=== PATIENT | female | born 1980 | race Caucasian/White ===

== ENCOUNTER 2024-11-14 23:59 | Emergency (ER) | payer OTHER, SELFPAY ==
[2024-11-15] VITALS: BMI 65.0
[2024-11-15 00:48] VITALS: BP 190/113; BP 203/126; PULSE 73; RESP 20; TEMP 36.7; O2SAT 97
--- NOTE | 2024-11-15 01:01 | XR_ITS ---
Examination: CT brain head without contrast. 2-D sagittal coronal reconstructions Date and time of exam:November 15, 2024 0107 hrs. Indications: High blood pressure with headache nausea vomiting today CTDI: vol (mGy):53.9 DLP: (mGycm):1110 Technique: Multiple CT axial sections of the brain have been obtained, 5 mm slice thickness. Contrast has not been administered. 2-D sagittal, coronal reconstructions have been obtained Low dose protocols were performed. One or more of the following dose reduction techniques were used; automated exposure control, adjustment of the mA and/or KV according to patient size, use of iterative reconstruction technique. Findings: No significant ventricular enlargement. Intra-axial or extra-axial hemorrhage density is not seen. No mass effect or midline shift Basal cisterns are not remarkable. Fourth ventricle is midline. Cranial vault intact. Impression: Negative for acute hemorrhage, mass effect or midline shift
--- NOTE | 2024-11-15 01:03 | PD.EDHA ---
ED Headache RME/HPI General Chief Complaint: Headache Stated Complaint: GIANG, HIGH BLOOD PRESSURE Time Seen by Provider: 11/15/24 01:01 Arrival date/time: 11/14/24 23:59 44F with history of HTN (doesn't take meds often) presents to ED with several days of GIANG, N/V and high BP. Limitations: no limitations Related Data Allergies Allergy/AdvReac Type Severity Reaction Status Date / Time No Known Allergies Allergy Verified 11/15/24 00:02 Review of Systems Review of Systems Systems Reviewed: All systems reviewed, normal except as documented Constitutional Constitutional: Reports system reviewed and no additional complaints, except as documented, Reports as per HPI, Denies fever(s) and Reports headache(s) ENT Ears, Nose, Mouth, and Throat: Denies disequilibrium and Reports headache(s) Cardiovascular Cardiovascular: Reports system reviewed and no additional complaints, except as documented, Denies chest pain and Denies dyspnea Respiratory Respiratory: Reports system reviewed and no additional complaints, except as documented, Denies cough and Denies dyspnea Gastrointestinal Gastrointestinal: Reports system reviewed and no additional complaints, except as documented, Reports as per HPI, Denies abdominal pain, Reports nausea and Reports vomiting Neurologic Neurologic: Reports system reviewed and no additional complaints, except as documented, Denies confusion, Denies disequilibrium and Reports headache(s) Psychiatric Psychiatric: Denies confusion Past Medical History Social History SMOKING STATUS: Never smoker ED Exam General Limitations: Present no limitations General appearance: Present alert and in no apparent distress Head Head exam: Present atraumatic Eye Eye exam: Present normal appearance, PERRL and EOMI ENT ENT exam: Present normal exam, normal oropharynx and mucous membranes moist Neck Neck exam: Present normal inspection, full ROM and trachea midline Chest Chest inspection: Present normal inspection and symmetric chest wall rise Respiratory Respiratory exam: Present normal lung sounds bilaterally Cardiovascular Cardiovascular exam: Present regular rate, normal rhythm and normal heart sounds Abdominal Exam Abdominal exam: Present soft and normal bowel sounds Extremities Exam Extremities exam: Present normal inspection and full ROM Back Exam Back exam: Present normal inspection and full ROM Neurological Exam Neurological exam: Present alert, oriented X3 and CN II-XII intact Psychiatric Psychiatric exam: Present normal affect and normal mood Skin Skin exam: Present warm, dry, intact and normal color Course Quality Measures none Orders Category Date Time Status CT head/brain wo con Stat Exams 11/15/24 01:01 Taken Metoclopramide [Reglan] Med 11/15/24 01:01 Discontinued 10 mg PO X1 ONE hydrALAZINE HCL [Apresoline] Med 11/15/24 01:01 Discontinued 25 mg PO X1 ONE Vital Signs Vital signs: Vital Signs Temperature 98.0 F 11/15/24 00:48 Pulse Rate 73 11/15/24 00:48 Respiratory Rate 20 11/15/24 00:48 Blood Pressure 190/113 H 11/15/24 00:48 Pulse Oximetry (%) 97 11/15/24 00:48 Oxygen Delivery Method Room Air 11/15/24 00:48 O2 at 97% on RA and WNLs Headache MDM Narrative MDM Narrative:: 44F with history of HTN (doesn't take meds often) presents to ED with several days of GIANG, N/V and high BP. Physical exam reveals normal pupil response and EOM. ENT clear. No neck tenderness. ROM intact. No ab tenderness. Patietn is afebrile, calm, and alert. CT unremarkable. Meds improved symptoms and BP. Patient data External records reviewed:: None Clinical information provided by:: patient Social determinants that could affect healthcare access:: none Patient has the following chronic illnesses:: HTN How is presenting disease/condition affected by chronic disease/condition?: exacerbated by Evaluation data The following diagnostics were reviewed and interpreted by me:: radiology exam(s) Lab and/or radiology exams considered but not ordered:: ordered Interpretation Summary: above Medications / Prescriptions Medications or Prescriptions considered but not ordered:: ordered Medication administrations:: Medication Administration History Discontinued Medications Hydralazine HCl (Hydralazine Hcl 25 Mg Tablet) 25 mg PO X1 ONE Stop: 11/15/24 01:02 Last Admin: 11/15/24 01:17 Dose: 25 mg Documented By: ROHITH Metoclopramide HCl (Metoclopramide 5 Mg Tablet) 10 mg PO X1 ONE Stop: 11/15/24 01:02 Last Admin: 11/15/24 01:17 Dose: 10 mg Documented By: ROHITH above Consultations Consultation(s) initiated? (list below): No Diagnosis Differential diagnosis headache: migraine, tension headache, subarachnoid hemorrhage, headache, meningitis, sinusitis, postconcussion syndrome and other (hypertensive urgency) Most likely diagnosis given after review of the tests above:: hypertensive urgency Admission Indicated Admission indicated?: not indicated Admission Request Was there a request for admission?: No Disposition Plan Disposition Plan: Discharge Discharge Attestation Discharge Attestation: The patient and all family members were given an opportunity to ask questions and understood the discharge instructions. Discharge instructions specifically effects, indications for sooner follow up or return to the emergency department, and the expected course of current diagnosis. Patient condition: Stable Discharge Plan Plan Patient Disposition: HOME (Self Care) Disposition Comment: Stable Problem List Clinical Impression: Hypertensive urgency Patient/Caregiver Discharge Instructions Additional Instructions: Please follow-up with PCP within 24-48 hours and return immediately if symptoms worsen. Make sure to take daily HTN meds. Print Language: Kinyarwanda Stand Alone Forms: Patient Portal Info Letter TASNEEM/ELSI Supervising Physician TASNEEM/ELSI Supervising Physician: Dr. Samuel
[2024-11-15 01:17] VITALS: BP 190/113; PULSE 73
[2024-11-15] MEDS: hydrALAZINE HCL 25 MG TABLET PO (01:17)
[2024-11-15] MEDS: METOCLOPRAMIDE 5 MG TABLET 10 MG PO (01:17)
--- NOTE | 2024-11-15 01:52 | PRELIM_ITS ---
CT scan of the head without intravenous contrast (axial sections with sagittal and coronal reformats) . November 15, 2024 at 0107 hoursClinical History: Headache, nausea, vomiting, high blood pressure.Com parison: No prior study is available for comparison. Findings:No evidence of intracranial hemorrhage, mass effect or midline shift. The ventricles and CSF spaces are unremarkable. The calvarium is unrem arkable. The mastoid air cells and the visualized paranasal sinuses are clear.Impression:No evidence of intracranial hemorrhage, mass effect or midline shift. Report Electronically Signed By: Vaibhav carrillo 11/15/2024 1:51:45 AM [EST]
[2024-11-15 02:00] VITALS: BP 177/98; PULSE 80; RESP 20; TEMP 37.3; O2SAT 98
== END 2024-11-15 02:09 | disposition home or self-care (01) ==
LOC: SERX 11-15 02:33
PROVIDERS: Emergency Provider Emergency Medicine
DX: I16.0 Hypertensive urgency (principal); I10 Essential (primary) hypertension; R51.9 Headache, unspecified; R11.2 Nausea with vomiting, unspecified
CPT/HCPCS: 70450; 99284; A9270

== ENCOUNTER → 2024-12-04 | Outpatient (CLI) | payer OTHER, SELFPAY ==
--- NOTE | 2024-12-04 14:30 | XR_ITS ---
Examination: Screening digital mammography, bilateral Computer aided detection 3-D breast Tomosynthesis, bilateral Date and time of exam: December 04, 2024 1447 hours Compared to mammograms dating to December 22, 2021 Indication: Screening Technique: Nonmagnified MLO, CC views of the breasts to been obtained, reconstructed from 3-D Tomosynthesis images. R2 computer aided detection program utilized for evaluation of suspicious masses and/or abnormal calcifications. 3-D Tomosynthesis images obtained. Findings: Scattered areas of fibroglandular density Benign calcifications. No suspicious masses Impression: BI-RADS category II: Benign Findings. Recommend 1 year follow-up mammogram.
== END | disposition home or self-care (01) ==
LOC: CDIM 14:19
PROVIDERS: Referring Provider Nurse Practitioner; Visit Provider Nurse Practitioner
DX: Z12.31 Encounter for screening mammogram for malignant neoplasm of breast (principal); R92.323 Mammographic fibroglandular density, bilateral breasts; R92.1 Mammographic calcification found on diagnostic imaging of breast
CPT/HCPCS: 77063; 77067

== ENCOUNTER → 2025-01-30 | Outpatient (CLI) | payer OTHER, SELFPAY ==
--- NOTE | 2025-01-30 15:21 | XR_ITS ---
Examination: Foot, right, 3 views Technique: AP, oblique, lateral views foot, 3 views Date and time of exam: January 30, 2025 1551 hours INDICATIONS: Right foot pain beginning 2 weeks ago. FINDINGS: Mild narrowing first metatarsophalangeal joint Small plantar posterior bony calcaneal spurs Mild diffuse narrowing intertarsal joints No fracture IMPRESSION: Mild osteoarthritis
== END | disposition home or self-care (01) ==
PROVIDERS: PCP Family Medicine; Referring Provider Registered Nurse Community Health; Visit Provider Registered Nurse Community Health
DX: M19.071 Primary osteoarthritis, right ankle and foot (principal)
CPT/HCPCS: 73630

== ENCOUNTER 2025-03-12 11:50 | Day surgery (SDC) | payer OTHER, SELFPAY ==
--- NOTE | 2025-03-09 10:58 | EKG_ITS ---
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
[2025-03-09 11:48] LABS: HCG Qualitative,Urine Negative
[2025-03-09 12:00] LABS: Alanine Aminotransferase < 7 U/L (10-49); Albumin, Serum 4.2 gm/dL (3.5-5.0); Albumin/Globulin Ratio 1.6 (1.2-2.2); Alkaline Phosphatase 110 U/L (46-116); Anion Gap 5 (7-16); Aspartate Amino Transferase 10 U/L (0-34); BUN/Creatinine Ratio 11 Ratio (12-20); Bilirubin,Total 0.4 mg/dL (0.3-1.2); Blood Urea Nitrogen 8 mg/dL (9-23); Calcium 9.2 mg/dL (8.3-10.6); Calcium (Corrected) 9.2 mg/dL (8.5-10.1); Chloride 105 mMol/L (98-107); Creatinine (Component) 0.7 mg/dL (0.6-1.3); Globulin 2.7 gm/dL (2.3-3.5); Glucose 117 mg/dL (74-106); Osmolality,Calculated 278 (275-295); Potassium 3.9 mMol/L (3.4-5.1); Sodium 140 mMol/L (136-145); Total Protein 6.9 gm/dL (5.7-8.2); eGFR > 60 See Note
[2025-03-09 12:19] LABS: Partial Thromboplastin Time 27.7 Seconds (22.0-36.0); Prothrombin Time 10.8 Seconds (9.0-12.2)
[2025-03-09 15:22] VITALS: BMI 67.8
[2025-03-12 12:26] VITALS: BP 157/101; PULSE 74; RESP 23; TEMP 36.6; O2SAT 98; BMI 67.3
[2025-03-12] MEDS: RINGERS LACTATED 1000 ML 1,000 ML 20 ML IV (16:19)
[2025-03-12 16:43] VITALS: BP 130/90; PULSE 70; RESP 12; TEMP 36.3; O2SAT 100
[2025-03-12 16:48] VITALS: BP 133/77; PULSE 68; RESP 15; O2SAT 97
[2025-03-12 16:53] VITALS: BP 120/62; PULSE 64; RESP 12; O2SAT 96
[2025-03-12 16:58] VITALS: BP 138/77; PULSE 72; RESP 12; O2SAT 99
[2025-03-12 17:13] VITALS: BP 146/88; PULSE 68; RESP 14; TEMP 36.4; O2SAT 98
--- NOTE | 2025-03-12 17:30 | SUR.PHASEII ---
1643: pt arrived to PACU via gurney drowsy but arouses to voice, breathing unlabored, report from Radha CLEMENTE, James HERNANDEZ, and Dr Humphries 1700: pt tolerating oral fluids without difficulty swallowing or n/v 1730: pt awake, alert, able to follow commands, breathing unlabored, discharge instructions given with spouse present, all questions answered, pt able to dress self and ambulate to wheelchair with steady gait, pt discharged via wheelchair with all belongings and copies of discharge paperwork.
== END 2025-03-12 17:30 | disposition home or self-care (01) ==
PROVIDERS: PCP Family Medicine; Referring Provider Specialist; Visit Provider Specialist
PROC: 0DJD8ZZ Inspection of Lower Intestinal Tract, Via Natural or Artificial Opening Endoscopic (ICD-10-PCS; CPT 45378; principal; 2025-03-12 14:00)
DX: K52.9 Noninfective gastroenteritis and colitis, unspecified (principal); K63.89 Other specified diseases of intestine; K62.89 Other specified diseases of anus and rectum; K64.9 Unspecified hemorrhoids; Z01.810 Encounter for preprocedural cardiovascular examination
CPT/HCPCS: 45380; 36415; 80053; 81025; 85610; 85730; 93005; A4649; J7120

== ENCOUNTER 2025-03-16 05:30 | Emergency (ER) | payer OTHER, SELFPAY ==
[2025-03-16 05:32] VITALS: BMI 67.3
[2025-03-16 05:39] VITALS: BP 135/83; PULSE 65; RESP 18; TEMP 36.5; O2SAT 98
--- NOTE | 2025-03-16 05:42 | XR_ITS ---
Examination: Knee, right , 3 views Technique: Knee AP, lateral, oblique 3 views Date and time of exam: March 16, 2025 0555 hours INDICATIONS: Twisting injury to the knee today, knee pain. FINDINGS: [id number]-[id number] tricompartment osteoarthritis. No acute fracture No dislocation IMPRESSION: No acute fracture
--- NOTE | 2025-03-16 05:42 | EDRME_ITS ---
Rapid Medical Screening Exam [facility], [facility] Arrival date/time: 03/16/25 05:30 44F with history of HTN, DM, and anxiety/depression presents to ED with R knee pain after she twisted it. Patient denies falling. Chief Complaint: Extremity Injury, Lower Vital signs: Vital Signs Temperature 97.7 F 03/16/25 05:39 Pulse Rate 65 03/16/25 05:39 Respiratory Rate 18 03/16/25 05:39 Blood Pressure 135/83 H 03/16/25 05:39 Pulse Oximetry (%) 98 03/16/25 05:39 Oxygen Delivery Method Room Air 03/16/25 05:39
[2025-03-16] MEDS: HYDROcodone/APAP 5/325 TABLET 1 TAB PO (05:51)
--- NOTE | 2025-03-16 06:48 | PD.EDLOWEX ---
Lower Extremity Injury RME/HPI General Chief Complaint: Extremity Injury, Lower Stated Complaint: RIGHT KNEE PAIN Time Seen by Provider: 03/16/25 06:03 Source: patient Arrival date/time: 03/16/25 05:30 44-year-old female with a history of hypertension, type 2 diabetes, anxiety and depression presents to the emergency room with a chief complaint of right knee pain after a tripping over her dog and twisting her knee Mode of arrival: ambulatory Limitations: no limitations RME / HPI RME / HPI Narrative: 03/16/25 05:30 44F with history of HTN, DM, and anxiety/depression presents to ED with R knee pain after she twisted it. Patient denies falling. Related Data Home Medications ?Medication ?Instructions ?Recorded ?Confirmed aripiprazole 5 mg tablet 5 mg PO DAILY 03/12/25 03/12/25 escitalopram oxalate 10 mg tablet 10 mg PO DAILY 03/12/25 03/12/25 omeprazole 20 mg capsule,delayed 20 mg PO DAILY 03/12/25 03/12/25 release valsartan 160 mg tablet 160 mg PO DAILY 03/12/25 03/12/25 Allergies Allergy/AdvReac Type Severity Reaction Status Date / Time codeine AdvReac Mild Gastrointestinal Verified 03/16/25 05:31 Upset Review of Systems Review of Systems Systems Reviewed: All systems reviewed, normal except as documented Constitutional Constitutional: Reports system reviewed and no additional complaints, except as documented, Denies fatigue, Denies fever(s), Denies headache(s) and Denies weakness Eyes Eyes: Reports system reviewed and no additional complaints, except as documented, Denies blurry vision and Denies change in vision ENT Ears, Nose, Mouth, and Throat: Reports system reviewed and no additional complaints, except as documented, Denies otalgia, Denies headache(s), Denies nasal congestion, Denies throat swelling and Denies vertigo Cardiovascular Cardiovascular: Reports system reviewed and no additional complaints, except as documented, Denies chest pain, Denies dyspnea and Denies dyspnea on exertion Respiratory Respiratory: Reports system reviewed and no additional complaints, except as documented, Denies chest congestion, Denies cough, Denies dyspnea, Denies dyspnea on exertion and Denies wheezing Gastrointestinal Gastrointestinal: Reports system reviewed and no additional complaints, except as documented, Denies abdominal pain, Denies cramping, Denies nausea and Denies vomiting Genitourinary Genitourinary: Reports system reviewed and no additional complaints, except as documented Musculoskeletal Musculoskeletal: Reports system reviewed and no additional complaints, except as documented, Reports abnormal gait, Reports arthralgias, Denies back pain and Reports joint swelling Integumentary/Breasts Skin/Breast: Reports system reviewed and no additional complaints, except as documented and Denies wounds Neurologic Neurologic: Reports system reviewed and no additional complaints, except as documented, Reports abnormal gait, Denies confusion, Denies headache(s), Denies lack of coordination, Denies vertigo and Denies weakness Psychiatric Psychiatric: Reports system reviewed and no additional complaints, except as documented, Denies anxiety, Denies confusion, Denies depression, Denies paranoia, Denies suicidal ideation and Denies tactile hallucinations Endocrine Endocrine: Reports system reviewed and no additional complaints, except as documented and Denies fatigue Hematologic/Lymphatic Hematologic/Lymphatic: Reports system reviewed and no additional complaints, except as documented and Denies lymphadenopathy Allergic/Immunologic Allergic/Immunologic: Reports system reviewed and no additional complaints, except as documented, Denies throat swelling, Denies urticaria and Denies wheezing ED Exam General Limitations: Present no limitations General appearance: Present alert and in no apparent distress Head Head exam: Present atraumatic Eye Eye exam: Present normal appearance, PERRL and EOMI ENT ENT exam: Present normal exam, normal oropharynx and mucous membranes moist Neck Neck exam: Present normal inspection, full ROM and trachea midline Chest Chest inspection: Present normal inspection and symmetric chest wall rise Respiratory Respiratory exam: Present normal lung sounds bilaterally Cardiovascular Cardiovascular exam: Present regular rate, normal rhythm and normal heart sounds Abdominal Exam Abdominal exam: Present soft and normal bowel sounds Extremities Exam Extremities exam: Present normal inspection and full ROM Expanded Lower Extremity Exam Hip/Pelvis exam: Present normal inspection Upper leg exam: Present normal inspection Knee exam: Present full ROM, tenderness, swelling, pain with valgus and pain with varus Back Exam Back exam: Present normal inspection and full ROM Neurological Exam Neurological exam: Present alert, oriented X3 and CN II-XII intact Psychiatric Psychiatric exam: Present normal affect and normal mood Skin Skin exam: Present warm, dry, intact and normal color Course Quality Measures none Orders Category Date Time Status Crutches .NOW Care 03/16/25 05:42 Active XR knee RT 3V Stat Exams 03/16/25 05:42 Completed HYDROcodone*/APAP 5/325 [[place] 5/325] Med 03/16/25 05:42 Discontinued 1 tab PO X1 ONE Vital Signs Vital signs: Vital Signs Temperature 97.7 F 03/16/25 05:39 Pulse Rate 65 03/16/25 05:39 Respiratory Rate 18 03/16/25 05:39 Blood Pressure 135/83 H 03/16/25 05:39 Pulse Oximetry (%) 98 03/16/25 05:39 Oxygen Delivery Method Room Air 03/16/25 05:39 O2 saturation 98% within normal limits Extremity Injury, Lower MDM Narrative MDM Narrative:: 44-year-old female with a history of hypertension, type 2 diabetes, anxiety and depression presents to the emergency room with a chief complaint of right knee pain after a tripping over her dog and twisting her knee Patient is hemodynamically stable and in no apparent distress. Patient has pain and tenderness to the patient's right knee and limited range of motion as well as mild swelling. X-ray of the right knee was completed and was negative for any acute fracture or dislocation. An Bebeto wrap was put on the patient for comfort crutches were given Patient was discharged and educated to follow-up with primary care provider in the next 24 to 48 hours and return to the emergency room for any evidence of worsening signs or symptoms Patient data External records reviewed:: [facility] previous records Clinical information provided by:: patient Social determinants that could affect healthcare access:: none Patient has the following chronic illnesses:: No chronic illness How is presenting disease/condition affected by chronic disease/condition?: no chronic disease Evaluation data The following diagnostics were reviewed and interpreted by me:: lab results and radiology exam(s) Lab and/or radiology exams considered but not ordered:: Labs and radiology exams considered and ordered Interpretation Summary: Knee [id number]: Ezzo-kz-bcygwlla tricompartment osteoarthritis. No acute fracture No dislocation IMPRESSION: No acute fracture Medications / Prescriptions Medications or Prescriptions considered but not ordered:: Medication given Medication administrations:: Medication Administration History Discontinued Medications Hydrocodone Bitart/Acetaminophen (Hydrocodone/Apap 5/325 Tablet) 1 tab PO X1 ONE Stop: 03/16/25 05:43 Last Admin: 03/16/25 05:51 Dose: 1 tab Documented By: Medication given Consultations Consultation(s) initiated? (list below): No Diagnosis Extremity Injury, Lower Differential Diagnosis: other (Knee sprain/knee fracture/knee dislocation) Most likely diagnosis given after review of the tests above:: Knee sprain Admission Indicated Admission indicated?: not indicated Admission Request Was there a request for admission?: No Disposition Plan Disposition Plan: Discharge Discharge Attestation Discharge Attestation: The patient and all family members were given an opportunity to ask questions and understood the discharge instructions. Discharge instructions specifically effects, indications for sooner follow up or return to the emergency department, and the expected course of current diagnosis. Patient condition: Stable Discharge Plan Plan Patient Disposition: HOME (Self Care) Discharge Disposition comment: Stable Prescriptions/Referrals Prescriptions/Med Rec: No Action omeprazole 20 mg capsule,delayed release(DR/EC) 20 mg PO DAILY Patient Comments: take 1 capsule by mouth once daily valsartan 160 mg tablet 160 mg PO DAILY Patient Comments: take 1 tablet by mouth once daily escitalopram oxalate 10 mg tablet 10 mg PO DAILY Patient Comments: take 1 tablet by mouth once daily aripiprazole 5 mg tablet 5 mg PO DAILY Patient Comments: take 1 tablet by mouth once daily Referrals: Iglesia Espinal MD [Primary Care Provider] - In 1 week Problem List Clinical Impression: Knee sprain Patient/Caregiver Discharge Instructions Education Materials: ED BEBETO Wrap, ED Knee Sprain Additional Instructions: Please follow-up with your primary care provider in the next 24 to 48 hours. X-ray was completed and was negative for any acute fracture or dislocation For any evidence of worsening signs or symptoms return to the emergency room immediately Print Language: Thai Stand Alone Forms: Elly Award Info., Work/School Release, Patient Portal Info Letter TASNEEM/ELSI Supervising Physician LISSY Supervising Physician: dr. St
== END 2025-03-16 07:26 | disposition home or self-care (01) ==
PROVIDERS: Emergency Provider Emergency Medicine; PCP Family Medicine
DX: S83.91XA Sprain of unspecified site of right knee, initial encounter (principal); X50.1XXA Overexertion from prolonged static or awkward postures, initial encounter; E11.9 Type 2 diabetes mellitus without complications; I10 Essential (primary) hypertension; F41.9 Anxiety disorder, unspecified; F32.A Depression, unspecified
CPT/HCPCS: 73562; 99283; A9270

== ENCOUNTER → 2025-07-05 | Outpatient (CLI) | payer OTHER, SELFPAY ==
--- NOTE | 2025-07-05 08:48 | XR_ITS ---
Examination: Hand, right 3 views Technique: Hand AP, oblique, lateral 3 views Date and time of exam: July 05, 2025 0912 hours INDICATIONS: Lump in the third digit this week FINDINGS: Moderate juxta-articular bone demineralization. No fracture or dislocation No cortical bone destruction No foreign body IMPRESSION: No bony exostosis No fracture or cortical bone destruction
== END | disposition home or self-care (01) ==
LOC: CDIM 08:44
PROVIDERS: Referring Provider Physician Assistant; Visit Provider Physician Assistant
DX: M79.641 Pain in right hand (principal)
CPT/HCPCS: 73130

== ENCOUNTER → 2025-07-12 | Outpatient (CLI) | payer OTHER, SELFPAY ==
--- NOTE | 2025-07-12 07:00 | XR_ITS ---
Exam: MRI knee without contrast, right Date and time of exam: July 12, 2025, 0708 hours INDICATIONS: Twisting injury to the March 2025 Technique: Multiple axial, coronal, and sagittal sections on the knee have been obtained. T2-Weighted sagittal, fat-suppressed images, TR 3,500, TE 62, T2 weighted coronal fat-saturated images, TR 3,500, TE 62 Proton density sagittal sections, TR 1800, TE 31. T-1 weighted coronal images, TR 524, TE 13.0 Findings: The patient size severely limits this diagnosis the imaging The knee coil could not be used for knee imaging Severe narrowing cartilage posterior patella facets Cruciate ligaments intact No gross meniscus tear Severe narrowing cartilage medial joint space, body the medial meniscus is partially extruded from the joint space No patellar dislocation IMPRESSION: Patient's size precludes use of the dedicated knee coil, severely limiting this study Severe narrowing patellofemoral and medial joint space No definite meniscus tears Cruciate ligaments appear grossly intact
== END | disposition home or self-care (01) ==
LOC: SMRI 06:48
PROVIDERS: PCP Nurse Practitioner Family; Referring Provider Nurse Practitioner Family; Visit Provider Nurse Practitioner Family
DX: S83.91XD Sprain of unspecified site of right knee, subsequent encounter (principal); X50.1XXD Overexertion from prolonged static or awkward postures, subsequent encounter; M25.861 Other specified joint disorders, right knee
CPT/HCPCS: 73721